=== PATIENT | male | born 1980 | race Caucasian/White ===

== ENCOUNTER → 2021-07-12 | Outpatient (CLI) | payer OTHER ==
[~2021-07-12] MED LIST: GABAPENTIN800 MG PO
== END ==
LOC: MRI 10:25
DX: R51.9 Headache, unspecified (principal); R79.89 Other specified abnormal findings of blood chemistry; H53.9 Unspecified visual disturbance; J32.0 Chronic maxillary sinusitis
CPT/HCPCS: 36415; 70553; 82565; A9577

== ENCOUNTER → 2021-11-13 | Outpatient (CLI) | payer OTHER | LOC: RAD 14:42 | DX: M54.2 Cervicalgia (principal); M54.9 Dorsalgia, unspecified | CPT/HCPCS: 72050; 72072; 72110 ==